=== PATIENT | female | born 1970 | race Caucasian/White ===

== ENCOUNTER → 2018-09-06 | Outpatient (CLI) | payer BC ==
--- NOTE | 2018-09-07 07:15 | US ---
EXAMINATION TYPE: US carotid duplex BILAT DATE OF EXAM: 09/06/2018 COMPARISON: NONE CLINICAL HISTORY: H53.9 Visual Disturbance. Visual problems. EXAM MEASUREMENTS: RIGHT: Peak Systolic Velocity (PSV) cm/sec ----- Right CCA: 104.3 ----- Right ICA: 108.1 ----- Right ECA: 98.0 ICA/CCA ratio: 1.0 RIGHT: End Diastole cm/sec ----- Right CCA: 22.2 ----- Right ICA: 45.0 ----- Right ECA: 19.7 LEFT: Peak Systolic Velocity (PSV) cm/sec ----- Left CCA: 136.8 ----- Left ICA: 112.3 ----- Left ECA: 83.2 ICA/CCA ratio: 0.8 LEFT: End Diastole cm/sec ----- Left CCA: 23.1 ----- Left ICA: 50.4 ----- Left ECA: 15.0 VERTEBRALS (direction of flow): Right Vertebral: Antegrade Left Vertebral: Antegrade Rhythm: Normal IMPRESSION: No evidence for hemodynamically significant stenosis. Criteria for Assigning % of Stenosis / Diameter reduction (Estimation based on the indirect measurements of the internal carotid artery velocities (ICA PSV). 1. Normal (no stenosis)=ICA PSV < 125 cm/s: ratio < 2.0: ICA EDV<40 cm/s. 2. Less than 50% stenosis=ICA PSV < 125 cm/s: ratio < 2.0: ICA EDV<40 cm/s. 3. 50 to 69% stenosis=ICA PSV of 125 to 230 cm/s: ration 2.0 ? 4.0: ICA EDV 40-100 cm/s. 4. Greater than 70% stenosis to near occlusion= ICA PSV > 230 cm/s: ratio > 4.0: ICA EDV > 100 cm/s. 5. Near occlusion= ICA PSV velocities may be low or undetectable: variable ratio and ICA EDV. 6. Total occlusion=unable to detect flow.
== END | disposition home or self-care (01) ==
LOC: RADUSMAIN 17:48
PROVIDERS: ATTEND Family Medicine
DX: H53.9 Unspecified visual disturbance (principal)
CPT/HCPCS: 93880

== ENCOUNTER → 2020-03-29 | Outpatient (CLI) | payer BC ==
--- NOTE | 2020-03-29 09:40 | US ---
EXAMINATION TYPE: US venous doppler duplex LE RT DATE OF EXAM: 03/29/2020 9:11 AM COMPARISON: NONE CLINICAL HISTORY: R60.0 EDEMA. Edema SIDE PERFORMED: Right TECHNIQUE: The lower extremity deep venous system is examined utilizing real time linear array sonog jeevan with graded compression, doppler sonography and color-flow sonography. VESSELS IMAGED: External Iliac Vein (EIV) Common Femoral Vein Deep Femoral Vein Greater Saphenous Vein * Femoral Vein Popliteal Vein Small Saphenous Vein * Proximal Calf Veins (* superficial vessels) Right Leg: Negative for DVT IMPRESSION: 1. Right lower extremity ultrasound negative for deep venous thrombosis.
== END | disposition home or self-care (01) ==
LOC: RADUSWWP 09:09
PROVIDERS: ATTEND Family Medicine
DX: R60.0 Localized edema (principal)

== ENCOUNTER 2020-09-24 08:44 | Day surgery (SDC) | payer BC ==
[2020-09-23 08:43] VITALS: BMI 32.0
--- NOTE | 2020-09-23 11:20 | HP ---
HISTORY AND PHYSICAL CHIEF COMPLAINT: Left shoulder pain and stiffness. 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 She has tried therapy in addition to medications and injection with only partial temporary relief. She is having significant night symptoms along with pain with attempted overhead use. PAST MEDICAL HISTORY: Significant for hypertension, heart disease. PAST SURGICAL HISTORY: Significant for mitral valve replacement, lithotripsy in addition to uterine ablation. CURRENT MEDICATIONS: Aspirin, metoprolol, omeprazole, and warfarin. She has allergies to CIPROFLOXACIN, PENICILLIN, ZITHROMAX. FAMILY HISTORY: Significant for cancer. SOCIAL HISTORY: Occasional alcohol use. 16 POINT REVIEW OF SYSTEMS: Otherwise reviewed and is noncontributory. PHYSICAL EXAMINATION: On examination, the patient is approximately 5 foot 2, 175 pounds of mesomorphic habitus. HEENT' Exam is nonfocal. NECK: Supple. On examination of her left shoulder, she is tender about the anterior subacromial space and glenohumeral joint. She has moderate subacromial crepitus. Active range of motion, forward elevation 100 degrees, external rotation lateral side 15 degrees, internal rotation to L5. Passively, I am able to forward elevate her 100 degrees. Motor strength is 5/5 for abduction and external rotation. Impingement test is positive. NEER test is positive. Her distal neurovascular exam appears intact in the left upper extremity. IMPRESSION: 1. Left shoulder adhesive capsulitis. 2. History of heart valve replacement, on anticoagulation. RECOMMENDATIONS: I talked to the patient at length regarding her condition and treatment options. At this point, she remains quite limited because of pain and stiffness despite adequate conservative measures. After thorough discussion, she opts to proceed with manipulation under anesthesia. Risks and benefits were discussed at length in layman's terms. We will likely perform that as an outpatient procedure and restart her formal therapy directly after that. MMODL / IJN: [id number] /
[~2020-09-24 08:44] MED LIST: DEXAMETHASONE SOD PHOSPHATE 4 MG/ML 1 ML VIAL IV ONE; HYDROmorphone 0.5 MG/0.5 ML SYRINGE IVP PRN; LACTATED RINGERS 1,000 ML IV SCH; LIDOCAINE 1% (10MG/ML) FOR IV START INTRADERMA PRN; MIDAZOLAM 2 MG/2 ML VIAL IV PRN; ONDANSETRON 4 MG/2 ML VIAL IVP ONE
[2020-09-24] MEDS ORDERED: fentaNYL (PF) 50 MCG/ML 2 ML AMP ONE (10:49)
[2020-09-24] MEDS ORDERED: PROPOFOL 10 MG/ML 20 ML VIAL IV ONE (10:49)
[2020-09-24] MEDS ORDERED: MIDAZOLAM 2 MG/2 ML VIAL ONE (10:49)
--- NOTE | 2020-09-24 11:02 | P.OP ---
Date of Procedure: 09/24/20 Preoperative Diagnosis: Left shoulder adhesive capsulitis Postoperative Diagnosis: Same Procedure(s) Performed: Manipulation under anesthesia left shoulder Anesthesia: MAC Surgeon: Kali Parker Estimated Blood Loss (ml): 0 Pathology: none sent Condition: stable Disposition: PACU Indications for Procedure: The patient's a 50-year-old female who presents with increasing left shoulder pain and stiffness secondary to adhesive capsulitis despite conservative measures. A discussion of the risks and benefits of manipulation under anesthesia was made with patient. She opted to proceed. Specific risks of this procedure to include fracture, tendon rupture, recurrence of stiffness and need for subsequent procedures was discussed. Informed consent was obtained. Operative Findings: As below Description of Procedure: Patient brought to the recovery room, and after induction of IV sedation the left shoulder was then gently manipulated. First with the arm at side obtaining full external rotation. Moderate adhesions were encountered. I then obtained full forward elevation. Again moderate adhesions were encountered. I felt I had adequate release at this point. She was then monitored until fully awake. No applications were incurred. There was no blood loss.
[2020-09-24 11:10] VITALS: TEMP 98
[2020-09-24] MEDS: fentaNYL (PF) 50 MCG/ML 2 ML AMP IVP ONE ×2 (11:24→11:34)
[2020-09-24] MEDS ORDERED: fentaNYL (PF) 50 MCG/ML 2 ML AMP IVP ONE (11:24)
[2020-09-24] MEDS ORDERED: traMADol 50 MG TAB ONE (12:22)
[2020-09-24] MEDS ORDERED: traMADol 50 MG TAB PO ONE (12:22)
[2020-09-24 12:38] VITALS: BP 134/86; PULSE 88; RESP 20
== END 2020-09-24 13:02 | disposition home or self-care (01) ==
LOC: OR 08:44
PROVIDERS: ATTEND Orthopaedic Surgery
DX: M75.02 Adhesive capsulitis of left shoulder (principal); Z95.2 Presence of prosthetic heart valve; I11.9 Hypertensive heart disease without heart failure; Z98.890 Other specified postprocedural states; Z80.9 Family history of malignant neoplasm, unspecified; I48.91 Unspecified atrial fibrillation; Z87.442 Personal history of urinary calculi; Z79.01 Long term (current) use of anticoagulants; Z79.82 Long term (current) use of aspirin; Z79.899 Other long term (current) drug therapy; Z88.1 Allergy status to other antibiotic agents; Z88.0 Allergy status to penicillin
CPT/HCPCS: 23700; 81025; J2250; J1100; J2405; J3010; J2704; J1170

== ENCOUNTER 2021-02-14 12:19 | Emergency (ER) | payer BC ==
[2021-02-14 12:24] VITALS: TEMP 97.4
[2021-02-14] MEDS ORDERED: SODIUM CHLORIDE 0.9% 1,000 ML IV STA (12:48)
[2021-02-14 13:16] LABS: Basophils # (A) 0.1 k/uL (0-0.2); Basophils % (A) 1 %; Eosinophils # (A) 0.5 k/uL (0-0.7); Eosinophils % (A) 7 %; HCT 38.7 % (34.0-46.0); HGB 13.3 gm/dL (11.4-16.0); Lymphocytes # (A) 2.3 k/uL (1.0-4.8); Lymphocytes % (A) 31 %; MCH 30.7 pg (25.0-35.0); MCHC 34.3 g/dL (31.0-37.0); MCV 89.7 fL (80.0-100.0); Mean Platelet Volume 7.6; Monocytes # (A) 0.4 k/uL (0-1.0); Monocytes % (A) 6 %; Neutrophils # (A) 3.9 k/uL (1.3-7.7); Neutrophils % (A) 53 %; Platelet Count 288 k/uL (150-450); RBC 4.32 m/uL (3.80-5.40); RDW 13.3 % (11.5-15.5); WBC 7.4 k/uL (3.8-10.6)
[2021-02-14 13:31] LABS: ALT 32 U/L (4-34); AST 35 U/L (14-36); African American GFR (CKD) >90 (>60 ml/min/1.73 sqM); Albumin 4.3 g/dL (3.5-5.0); Alkaline Phosphatase 101 U/L (38-126); Anion Gap 14 mmol/L; Blood Urea Nitrogen 10 mg/dL (7-17); Calcium 9.2 mg/dL (8.4-10.2); Carbon Dioxide 18 mmol/L (22-30); Chloride 105 mmol/L (98-107); Glucose 126 mg/dL (74-99); Magnesium 1.6 mg/dL (1.6-2.3); Non-African American GFR(CKD) >90 (>60 ml/min/1.73 sqM); Potassium 3.5 mmol/L (3.5-5.1); Sodium 137 mmol/L (137-145); Total Bilirubin 0.6 mg/dL (0.2-1.3); Total Protein 7.8 g/dL (6.3-8.2)
[2021-02-14 13:44] LABS: INR 2.6 (<1.2); Partial Thromboplastin Time 26.9 sec (22.0-30.0)
[2021-02-14] MEDS ORDERED: ONDANSETRON 4 MG/2 ML VIAL IVP STA (13:44)
--- NOTE | 2021-02-14 13:47 | CT ---
EXAMINATION TYPE: CT brain wo con DATE OF EXAM: 02/14/2021 COMPARISON: None INDICATION: Dizziness, hand numbness, nausea, weakness without injury for 1 hour DLP: 1055.4 mGycm, Automated exposure control for dose reduction was used. CONTRAST: None CT of the brain is performed utilizing 3 mm thick sections through the posterior fossa and 3 mm thick sections through the remaining calvarium. Study is performed within 24 hours of arrival to the hosp ital. No abnormal hyperdensity is present to suggest an acute intracranial hemorrhage. No mass lesion is evident. No acute infarcts are evident. Ventricles and sulci are appropriate for the patient age. Paranasal sinuses and mastoid air cells within the [id number] are clear. IMPRESSIONS: 1. No acute intracranial process.
[2021-02-14 13:51] VITALS: RESP 16
--- NOTE | 2021-02-14 13:53 | XR ---
EXAMINATION TYPE: XR chest 2V DATE OF EXAM: 02/14/2021 COMPARISON: 12/14/2011 HISTORY: Dysrhythmia TECHNIQUE: FINDINGS: There is no heart failure nor confluent pneumonic infiltrate. There are sternal wires. Cost ophrenic angles are clear. Heart size is fairly normal. IMPRESSION: No active cardiopulmonary disease. No change.
[2021-02-14] MEDS ORDERED: METOCLOPRAMIDE 5 MG/ML 2 ML VIAL IVP STA (14:30)
[2021-02-14] MEDS ORDERED: diphenhydrAMINE 50 MG/ML 1 ML VIAL IVP STA (14:30)
--- NOTE | 2021-02-14 15:49 | ED ---
Arrhythmia/Palpitations HPI - General Chief Complaint: Arrhythmia/Palpitations Stated Complaint: palpitations Time Seen by Provider: 02/14/21 12:33 Source: patient Mode of arrival: wheelchair Limitations: no limitations - History of Present Illness Initial Comments: 50-year-old female presenting for dizziness, tingling in both hands. Patient states that she has history of Mnire's she states she is not dizziness in quite some time but this morning with movement of the head she was having dizziness and nausea she states she just felt off and her hands tingled bilaterally. pt denies headache, vision changes, neck stiffness, falls, trauma to head, ear pain, speech changes, being off balance. Patient denies fevers, chest pain, leg swelling, dyspnea. patient states she did have some palpitations earlier that have gone away. Denies additional complaints. Upon arrival patient appears well nontoxic in no acute distress. - Related Data Home Medications Medication Instructions Recorded Confirmed Aspirin EC [Ecotrin] 81 mg PO DAILY 01/07/15 02/14/21 Omeprazole 20 mg PO DAILY 09/23/20 02/14/21 Magnesium Oxide 400 mg PO DAILY 02/14/21 02/14/21 Metoprolol Succinate [Toprol XL] 50 mg PO BID 02/14/21 02/14/21 Warfarin Sodium [Jantoven] 2.5 mg PO DAILY 02/14/21 02/14/21 Warfarin Sodium [Jantoven] 3 mg PO DAILY 02/14/21 02/14/21 Previous Rx's Medication Instructions Recorded Meclizine [Antivert] 25 mg PO BID 7 Days #14 tab 02/14/21 Allergies Allergy/AdvReac Type Severity Reaction Status Date / Time ciprofloxacin Allergy Rash/Hives Verified 02/14/21 13:34 erythromycin base Allergy SEVERE Verified 02/14/21 13:34 HEADACHES Penicillins Allergy Rash/Hives Verified 02/14/21 13:34 azithromycin [From Zithromax] AdvReac headache Verified 02/14/21 13:34 Review of Systems ROS Statement: Those systems with pertinent positive or pertinent negative responses have been documented in the HPI. ROS Other: All systems not noted in ROS Statement are negative. Past Medical History Past Medical History: Atrial Fibrillation, GERD/Reflux Additional Past Medical History / Comment(s): KIDNEY STONES. FROZEN LEFT SHOULDER. LOW BLOOD PRESSURE, History of Any Multi-Drug Resistant Organisms: None Reported Past Surgical History: Heart Catheterization, Uterine Ablation Additional Past Surgical History / Comment(s): mitral valve repair X3,. ASD repair. LITHOTRIPSY X 2. SX FOR ENDOMETRIOSIS. mitral valve replacement, Past Anesthesia/Blood Transfusion Reactions: Postoperative Nausea & Vomiting (PONV) Past Psychological History: No Psychological Hx Reported Smoking Status: Never smoker Past Alcohol Use History: None Reported, Occasional Past Drug Use History: None Reported - Past Family History Mother Family Medical History: No Reported History General Exam - General Exam Comments Initial Comments: General: The patient is awake and alert, in no distress, and does not appear acutely ill. Eye: +3 mm pupils are equal, round and reactive to light, extra-ocular movements are intact. No nystagmus. There is normal conjunctiva bilaterally. No signs of icterus. Dizziness increased with rapid head movemlent (improved with benadryl) Ears, nose, mouth and throat: There are moist mucous membranes and no oral lesions. Neck: The neck is supple, there is no tenderness or JVD. Cardiovascular: There is a regular rate and rhythm. No murmur, rub or gallop is appreciated. Respiratory: Lungs are clear to auscultation, respirations are non-labored, breath sounds are equal. No wheezes, stridor, rales, or rhonchi. Gastrointestinal: Soft, non-distended, non-tender abdomen without masses or organomegaly noted. There is no rebound or guarding present. Musculoskeletal: Normal ROM, no tenderness. Strength 5/5. Sensation intact. Radial and DP pulses equal bilaterally 2+. Neurological: A&O x 3. CN II-XII intact, There are no obvious motor or sensory deficits. Coordination appears grossly intact. Speech is normal. Movement smooth coordinated, gait even in stride. no ataxia. Skin: Skin is warm and dry and no rashes or lesions are noted. Psychiatric: Cooperative, appropriate mood & affect, normal judgment. Limitations: no limitations Course Vital Signs 02/14/21 02/14/21 02/14/21 12:21 13:50 16:01 Temperature 97.4 F L Pulse Rate 103 H 85 101 H Respiratory 24 16 16 Rate Blood Pressure 128/79 111/72 107/74 O2 Sat by Pulse 100 98 100 Oximetry Medical Decision Making - Medical Decision Making EKG no acute findings,. troponin (-). description sounds like vertigo rather than presyncope. patient cxr clear. murmur present. no leg swelling. patient feeling better with meclizine and benadryl. patient CT brain (-). discussed case with Dr Sidhu who is agreeable to discharge (he did evaluate the patient personally). patient is agreebale to discharge with pcp f/u. return for worsening symptoms. given hx provided I feel this is likely peripheral vertigo. - Lab Data Result diagrams: 02/14/21 12:50 02/14/21 12:50 Lab Results 02/14/21 02/14/21 02/14/21 Range/Units 12:50 12:50 12:50 WBC 7.4 (3.8-10.6) k/uL RBC 4.32 (3.80-5.40) m/uL Hgb 13.3 (11.4-16.0) gm/dL Hct 38.7 (34.0-46.0) % MCV 89.7 (80.0-100.0) fL MCH 30.7 (25.0-35.0) pg MCHC 34.3 (31.0-37.0) g/dL RDW 13.3 (11.5-15.5) % Plt Count 288 (150-450) k/uL MPV 7.6 Neutrophils % 53 % Lymphocytes % 31 % Monocytes % 6 % Eosinophils % 7 % Basophils % 1 % Neutrophils # 3.9 (1.3-7.7) k/uL Lymphocytes # 2.3 (1.0-4.8) k/uL Monocytes # 0.4 (0-1.0) k/uL Eosinophils # 0.5 (0-0.7) k/uL Basophils # 0.1 (0-0.2) k/uL PT 25.0 H (9.0-12.0) sec INR 2.6 H (<1.2) APTT 26.9 (22.0-30.0) sec Sodium 137 (137-145) mmol/L Potassium 3.5 (3.5-5.1) mmol/L Chloride 105 (98-107) mmol/L Carbon Dioxide 18 L (22-30) mmol/L Anion Gap 14 mmol/L BUN 10 (7-17) mg/dL Creatinine 0.49 L (0.52-1.04) mg/dL Est GFR (CKD-EPI)AfAm >90 (>60 ml/min/1.73 sqM) Est GFR (CKD-EPI)NonAf >90 (>60 ml/min/1.73 sqM) Glucose 126 H (74-99) mg/dL Calcium 9.2 (8.4-10.2) mg/dL Magnesium 1.6 (1.6-2.3) mg/dL Total Bilirubin 0.6 (0.2-1.3) mg/dL AST 35 (14-36) U/L ALT 32 (4-34) U/L Alkaline Phosphatase 101 (38-126) U/L Troponin I (0.000-0.034) ng/mL Total Protein 7.8 (6.3-8.2) g/dL Albumin 4.3 (3.5-5.0) g/dL TSH 3.330 (0.465-4.680) mIU/L 02/14/21 Range/Units 12:50 WBC (3.8-10.6) k/uL RBC (3.80-5.40) m/uL Hgb (11.4-16.0) gm/dL Hct (34.0-46.0) % MCV (80.0-100.0) fL MCH (25.0-35.0) pg MCHC (31.0-37.0) g/dL RDW (11.5-15.5) % Plt Count (150-450) k/uL MPV Neutrophils % % Lymphocytes % % Monocytes % % Eosinophils % % Basophils % % Neutrophils # (1.3-7.7) k/uL Lymphocytes # (1.0-4.8) k/uL Monocytes # (0-1.0) k/uL Eosinophils # (0-0.7) k/uL Basophils # (0-0.2) k/uL PT (9.0-12.0) sec INR (<1.2) APTT (22.0-30.0) sec Sodium (137-145) mmol/L Potassium (3.5-5.1) mmol/L Chloride (98-107) mmol/L Carbon Dioxide (22-30) mmol/L Anion Gap mmol/L BUN (7-17) mg/dL Creatinine (0.52-1.04) mg/dL Est GFR (CKD-EPI)AfAm (>60 ml/min/1.73 sqM) Est GFR (CKD-EPI)NonAf (>60 ml/min/1.73 sqM) Glucose (74-99) mg/dL Calcium (8.4-10.2) mg/dL Magnesium (1.6-2.3) mg/dL Total Bilirubin (0.2-1.3) mg/dL AST (14-36) U/L ALT (4-34) U/L Alkaline Phosphatase (38-126) U/L Troponin I <0.012 (0.000-0.034) ng/mL Total Protein (6.3-8.2) g/dL Albumin (3.5-5.0) g/dL TSH (0.465-4.680) mIU/L Disposition Clinical Impression: Dizziness, Paresthesia Disposition: HOME SELF-CARE Condition: Good Instructions (If sedation given, give patient instructions): Vertigo (ED), Benign Paroxysmal Positional Vertigo (ED) Additional Instructions: Please use medication as discussed. Please follow-up with family doctor in the next 2 days.. Please return to emergency room if the symptoms increase or worsen or for any other concerns. Prescriptions: Meclizine [Antivert] 25 mg PO BID 7 Days #14 tab Is patient prescribed a controlled substance at d/c from ED?: No Referrals: Seferino Matamoros MD [Primary Care Provider] - 1-2 days Time of Disposition: 15:49
[2021-02-14 16:02] VITALS: BP 107/74; PULSE 101
== END 2021-02-14 16:05 | disposition home or self-care (01) ==
LOC: EC 12:19
DX: R42 Dizziness and giddiness (principal); R20.2 Paresthesia of skin; R00.2 Palpitations; I48.91 Unspecified atrial fibrillation; K21.9 Gastro-esophageal reflux disease without esophagitis; Z79.82 Long term (current) use of aspirin; Z79.01 Long term (current) use of anticoagulants; Z88.0 Allergy status to penicillin; Z79.899 Other long term (current) drug therapy
CPT/HCPCS: 93005; 80053; 83735; 84443; 84484; 85025; 85610; 85730; 71046; 70450; 99285; 96374; 96375 ×2; J1200; J2765; J2405

== ENCOUNTER 2022-05-31 11:30 | Observation (INO) | payer BC ==
[2022-05-31] MEDS ORDERED: CYCLOBENZAPRINE 10 MG TAB PO STA (11:54)
[2022-05-31] MEDS ORDERED: MORPHINE SULFATE 2 MG/ML SYRINGE IM STA (12:16)
[2022-05-31] MEDS: MORPHINE SULFATE 2 MG/ML SYRINGE IVP STA ×2 (12:22→18:10)
--- NOTE | 2022-05-31 12:27 | ED ---
General Adult HPI - General Chief complaint: Recheck/Abnormal Lab/Rx Stated complaint: Back Pain Time Seen by Provider: 05/31/22 11:31 Source: patient, EMS, RN notes reviewed Mode of arrival: EMS Limitations: physical limitation - History of Present Illness Initial comments: Patient is a 52-year-old female presents to the emergency room via EMS for severe back pain causing difficulty ambulating. She reports that the pain is so severe that she feels that her legs are unsteady and it causes her significant pain to move her legs. Attempting to straighten her right leg causes muscle spasms and severe lower back pain. She denies any trauma. She reports that approximately one month ago she was doing some's repeating outside bending over excessively and afterwards she started having muscle spasms that have been ongoing for the last month this morning her symptoms had intensified when she had awaken and after doing the dishes earlier today the pain became so severe she was unable to ambulate. As stated she denies any trauma or falls. She denies any focal weakness not related to pain, bladder or bowel incontinence, or other red flag symptoms for cauda equina. She has a past medical history significant for atrial fibrillation, GERD, kidney stones, MVP with valve replacement; she is on warfarin. - Related Data Home Medications Medication Instructions Recorded Confirmed Aspirin EC [Ecotrin] 81 mg PO DAILY 01/07/15 02/14/21 Omeprazole 20 mg PO DAILY 09/23/20 02/14/21 Magnesium Oxide 400 mg PO DAILY 02/14/21 02/14/21 Metoprolol Succinate [Toprol XL] 50 mg PO BID 02/14/21 02/14/21 Warfarin Sodium [Jantoven] 2.5 mg PO DAILY 02/14/21 02/14/21 Warfarin Sodium [Jantoven] 3 mg PO DAILY 02/14/21 02/14/21 Previous Rx's Medication Instructions Recorded Meclizine [Antivert] 25 mg PO BID 7 Days #14 tab 02/14/21 Allergies Allergy/AdvReac Type Severity Reaction Status Date / Time ciprofloxacin Allergy Rash/Hives Verified 05/31/22 11:39 erythromycin base Allergy SEVERE Verified 05/31/22 11:39 HEADACHES Penicillins Allergy Rash/Hives Verified 05/31/22 11:39 azithromycin [From Zithromax] AdvReac headache Verified 05/31/22 11:39 Review of Systems ROS Statement: Those systems with pertinent positive or pertinent negative responses have been documented in the HPI. ROS Other: All systems not noted in ROS Statement are negative. Past Medical History Past Medical History: Atrial Fibrillation, GERD/Reflux, Mitral Valve Prolapse (MVP) Additional Past Medical History / Comment(s): Nephrolithiasis History of Any Multi-Drug Resistant Organisms: None Reported Past Surgical History: Heart Catheterization, Uterine Ablation Additional Past Surgical History / Comment(s): mitral valve repair X3,. ASD repair. LITHOTRIPSY X 2. SX FOR ENDOMETRIOSIS. mitral valve replacement, Past Anesthesia/Blood Transfusion Reactions: Postoperative Nausea & Vomiting (PONV) Past Psychological History: No Psychological Hx Reported Smoking Status: Never smoker Past Alcohol Use History: None Reported, Occasional Past Drug Use History: None Reported - Past Family History Mother Family Medical History: No Reported History General Exam Limitations: physical limitation General appearance: alert, in no apparent distress Head exam: Present: atraumatic, normocephalic, normal inspection Eye exam: Present: normal appearance, PERRL, EOMI. Absent: scleral icterus, conjunctival injection, periorbital swelling ENT exam: Present: normal exam, mucous membranes moist Neck exam: Present: normal inspection, full ROM GI/Abdominal exam: Present: soft, normal bowel sounds. Absent: distended, tenderness, guarding, rebound, rigid Extremities exam: Present: normal inspection. Absent: pedal edema, joint swelling Back exam: Present: other (Difficult to assess due to severe pain. No point tenderness noted.). Absent: paraspinal tenderness, vertebral tenderness Expanded Back exam: Positive Straight Leg Raise: Right Neurological exam: Present: alert, oriented X3, CN II-XII intact Psychiatric exam: Present: normal affect, normal mood Skin exam: Present: warm, dry, intact, normal color. Absent: rash Course Vital Signs 05/31/22 05/31/22 11:34 13:43 Temperature 97.9 F Pulse Rate 69 72 Respiratory 18 18 Rate Blood Pressure 151/85 141/70 O2 Sat by Pulse 98 98 Oximetry Medical Decision Making - Medical Decision Making 52-year-old female with severe low back pain with difficulty ambulating and severe back spasms with straightening of right leg. Denies any trauma or injury. Will give morphine IM for pain along with muscle relaxer orally. Will check CT of the lumbar spine and monitor. No indication for laboratory studies at this time. Im morphine given due to failure of IV for pain. Computed tomography scan revealed L5-S1 disc bulge with superimposed central disc protrusion and result in mild to moderate spinal stenosis of the spinal Canal along with L4-L5 bulging with mild spinal canal stenosis. Pain not improved with IM morphine. IV line to be placed and we'll give Decadron, Valium along with 4 mg of morphine and monitor response. Slight improvement in pain but still severe pain with inability to fall onto and off of a bedside commode. Will plan for observation admission for intractable pain. Dr. Gaming with sound physicians advised of the patient's case and admission need; excepting admission. Case discussed with Dr. Sidhu. - Lab Data Result diagrams: 05/31/22 13:43 05/31/22 13:43 Lab Results 05/31/22 05/31/22 05/31/22 Range/Units 13:27 13:43 13:43 WBC 9.1 (3.8-10.6) k/uL RBC 4.38 (3.80-5.40) m/uL Hgb 12.8 (11.4-16.0) gm/dL Hct 38.9 (34.0-46.0) % MCV 88.9 (80.0-100.0) fL MCH 29.2 (25.0-35.0) pg MCHC 32.8 (31.0-37.0) g/dL RDW 13.9 (11.5-15.5) % Plt Count 274 (150-450) k/uL MPV 7.9 Neutrophils % 78 % Lymphocytes % 13 % Monocytes % 3 % Eosinophils % 4 % Basophils % 1 % Neutrophils # 7.1 (1.3-7.7) k/uL Lymphocytes # 1.2 (1.0-4.8) k/uL Monocytes # 0.2 (0-1.0) k/uL Eosinophils # 0.4 (0-0.7) k/uL Basophils # 0.1 (0-0.2) k/uL PT (9.0-12.0) sec INR (<1.2) APTT (22.0-30.0) sec Sodium 136 L (137-145) mmol/L Potassium 4.4 (3.5-5.1) mmol/L Chloride 104 (98-107) mmol/L Carbon Dioxide 19 L (22-30) mmol/L Anion Gap 13 mmol/L BUN 10 (7-17) mg/dL Creatinine 0.66 (0.52-1.04) mg/dL Est GFR (CKD-EPI)AfAm >90 (>60 ml/min/1.73 sqM) Est GFR (CKD-EPI)NonAf >90 (>60 ml/min/1.73 sqM) Glucose 94 (74-99) mg/dL Calcium 8.8 (8.4-10.2) mg/dL Total Bilirubin 0.5 (0.2-1.3) mg/dL AST 19 (14-36) U/L ALT 15 (4-34) U/L Alkaline Phosphatase 67 (38-126) U/L Total Protein 7.3 (6.3-8.2) g/dL Albumin 3.9 (3.5-5.0) g/dL Urine Color Light Yellow Urine Appearance Clear (Clear) Urine pH 7.0 (5.0-8.0) Ur Specific Sparks 1.009 (1.001-1.035) Urine Protein Negative (Negative) Urine Glucose (UA) Negative (Negative) Urine Ketones Negative (Negative) Urine Blood Negative (Negative) Urine Nitrite Negative (Negative) Urine Bilirubin Negative (Negative) Urine Urobilinogen <2.0 (<2.0) mg/dL Ur Leukocyte Esterase Negative (Negative) 05/31/22 Range/Units 14:22 WBC (3.8-10.6) k/uL RBC (3.80-5.40) m/uL Hgb (11.4-16.0) gm/dL Hct (34.0-46.0) % MCV (80.0-100.0) fL MCH (25.0-35.0) pg MCHC (31.0-37.0) g/dL RDW (11.5-15.5) % Plt Count (150-450) k/uL MPV Neutrophils % % Lymphocytes % % Monocytes % % Eosinophils % % Basophils % % Neutrophils # (1.3-7.7) k/uL Lymphocytes # (1.0-4.8) k/uL Monocytes # (0-1.0) k/uL Eosinophils # (0-0.7) k/uL Basophils # (0-0.2) k/uL PT 25.7 H (9.0-12.0) sec INR 2.6 H (<1.2) APTT 32.9 H (22.0-30.0) sec Sodium (137-145) mmol/L Potassium (3.5-5.1) mmol/L Chloride (98-107) mmol/L Carbon Dioxide (22-30) mmol/L Anion Gap mmol/L BUN (7-17) mg/dL Creatinine (0.52-1.04) mg/dL Est GFR (CKD-EPI)AfAm (>60 ml/min/1.73 sqM) Est GFR (CKD-EPI)NonAf (>60 ml/min/1.73 sqM) Glucose (74-99) mg/dL Calcium (8.4-10.2) mg/dL Total Bilirubin (0.2-1.3) mg/dL AST (14-36) U/L ALT (4-34) U/L Alkaline Phosphatase (38-126) U/L Total Protein (6.3-8.2) g/dL Albumin (3.5-5.0) g/dL Urine Color Urine Appearance (Clear) Urine pH (5.0-8.0) Ur Specific Sparks (1.001-1.035) Urine Protein (Negative) Urine Glucose (UA) (Negative) Urine Ketones (Negative) Urine Blood (Negative) Urine Nitrite (Negative) Urine Bilirubin (Negative) Urine Urobilinogen (<2.0) mg/dL Ur Leukocyte Esterase (Negative) - Radiology Data Radiology results: report reviewed, image reviewed Computed tomography scan lumbar spine without contrast impression L5-S1 disc bulge with superimposed central disc protrusion and rate salt and mild to moderate stenosis of the spinal canal. 2. L4-L5 disc bulge with mild spinal kennedi l stenosis. Disposition Clinical Impression: Bulge of lumbar disc without myelopathy Disposition: ADMITTED IP TO THIS [facility] Condition: Stable Is patient prescribed a controlled substance at d/c from ED?: No Referrals: Seferino Matamoros MD [Primary Care Provider] - 1-2 days Time of Disposition: 15:39
--- NOTE | 2022-05-31 13:07 | CT ---
EXAMINATION TYPE: CT lumbar spine wo con DATE OF EXAM: 05/31/2022 12:49 PM COMPARISON: Abdomen pelvis 01/07/2015 HISTORY: Low back pain CT DLP: 1141.4 mGycm Automated exposure control for dose reduction was used. Unenhanced CT of the lumbar spine was performed. Bone and soft tissue window settings are submitted as well as coronal and sagittal reconstructions. L1-L2, L2-L3, L3-L4: Normal disc space height. No disc herniation protrusion or central stenosis. N o facet joint arthropathy. No evidence for foraminal encroachment. L4-L5: Mild decrease in intervertebral disc height. Posterior disc bulge is addition to buckling of t he ligamentum flavum results in at least mild spinal canal stenosis. The neural foramina are patent. Mild facet arthropathy. L5-S1: Mild intervertebral disc height loss. Disc bulge with superimposed central disc protrusion con tributes to mild to moderate spinal stenosis. Minimal encroachment on the left neural foramen. The ri ght neural foramen is clear. IMPRESSION: 1. L5-S1 disc bulge with superimposed central disc protrusion and resultant mild to moderate stenosis of the spinal canal. 2. L4-L5 disc bulge with mild spinal canal stenosis.
[2022-05-31] MEDS ORDERED: MORPHINE SULFATE 4 MG/ML SYRINGE IVP STA (13:40)
[2022-05-31] MEDS ORDERED: DEXAMETHASONE SOD PHOSPHATE 10 MG/ML 1 ML VIAL IVP STA (13:40)
[2022-05-31 13:43] LABS: Appearance,Urine Clear (Clear); Bilirubin,Urine Negative (Negative); Blood,Urine Negative (Negative); Color,Urine Light Yellow; Glucose,Urine (UA) Negative (Negative); Ketones,Urine Negative (Negative); Leukocyte Esterase,Urine Negative (Negative); Nitrite,Urine Negative (Negative); Protein,Urine Negative (Negative); Specific Gravity,Urine 1.009 (1.001-1.035); Urobilinogen,Urine <2.0 mg/dL (<2.0)
[2022-05-31 13:52] LABS: Basophils # (A) 0.1 k/uL (0-0.2); Basophils % (A) 1 %; Eosinophils # (A) 0.4 k/uL (0-0.7); Eosinophils % (A) 4 %; HCT 38.9 % (34.0-46.0); HGB 12.8 gm/dL (11.4-16.0); Lymphocytes # (A) 1.2 k/uL (1.0-4.8); Lymphocytes % (A) 13 %; MCH 29.2 pg (25.0-35.0); MCHC 32.8 g/dL (31.0-37.0); MCV 88.9 fL (80.0-100.0); Mean Platelet Volume 7.9; Monocytes # (A) 0.2 k/uL (0-1.0); Monocytes % (A) 3 %; Neutrophils # (A) 7.1 k/uL (1.3-7.7); Neutrophils % (A) 78 %; Platelet Count 274 k/uL (150-450); RBC 4.38 m/uL (3.80-5.40); RDW 13.9 % (11.5-15.5); WBC 9.1 k/uL (3.8-10.6)
[2022-05-31 14:00] LABS: ALT 15 U/L (4-34); AST 19 U/L (14-36); African American GFR (CKD) >90 (>60 ml/min/1.73 sqM); Albumin 3.9 g/dL (3.5-5.0); Alkaline Phosphatase 67 U/L (38-126); Anion Gap 13 mmol/L; Blood Urea Nitrogen 10 mg/dL (7-17); Calcium 8.8 mg/dL (8.4-10.2); Carbon Dioxide 19 mmol/L (22-30); Chloride 104 mmol/L (98-107); Glucose 94 mg/dL (74-99); Non-African American GFR(CKD) >90 (>60 ml/min/1.73 sqM); Potassium 4.4 mmol/L (3.5-5.1); Sodium 136 mmol/L (137-145); Total Bilirubin 0.5 mg/dL (0.2-1.3); Total Protein 7.3 g/dL (6.3-8.2)
[2022-05-31 14:43] LABS: INR 2.6 (<1.2); Partial Thromboplastin Time 32.9 sec (22.0-30.0); Prothrombin Time 25.7 sec (9.0-12.0)
[2022-05-31] MEDS ORDERED: MORPHINE SULFATE 4 MG/ML SYRINGE IV PRN (15:40)
[2022-05-31] MEDS ORDERED: NALOXONE 0.4 MG/ML 1 ML VIAL IV PRN ×2 (15:40→17:35)
--- NOTE | 2022-05-31 17:42 | P.HPIM ---
History of Present Illness H&P Date: 05/31/22 Chief Complaint: back pain 52-year-old female with past medical history significant for atrial fibrillation, GERD, kidney stones, MVP with valve replacement on coumadin presents to the emergency room via EMS for severe back pain causing difficulty with ambulation. No hx of trauma. Patient had few episodes of muscle spasms in her back throughout her life. No chronic back pain. Pain does not radiate towards her leg. However any movement of the leg could trigger the back pain. She denies any focal weakness or numbness, no bladder or bowel incontinence. In the emergency department she had a computed tomography scan of the lower back that showed L5 to S1 disc bulge with superimposed central disc protrusion and resulting mild to moderate stenosis of the spinal canal, L4 to L5 disc bulge with mild spinal canal stenosis. Review of Systems Complete review of system performed, pertinent positives per HPI, otherwise negative Past Medical History Past Medical History: Atrial Fibrillation, GERD/Reflux, Mitral Valve Prolapse (MVP) Additional Past Medical History / Comment(s): Nephrolithiasis History of Any Multi-Drug Resistant Organisms: None Reported Past Surgical History: Heart Catheterization, Uterine Ablation Additional Past Surgical History / Comment(s): mitral valve repair X3,. ASD repair. LITHOTRIPSY X 2. SX FOR ENDOMETRIOSIS. mitral valve replacement, Past Anesthesia/Blood Transfusion Reactions: Postoperative Nausea & Vomiting (PONV) Past Psychological History: No Psychological Hx Reported Smoking Status: Never smoker Past Alcohol Use History: None Reported, Occasional Past Drug Use History: None Reported - Past Family History Mother Family Medical History: No Reported History Medications and Allergies Home Medications Medication Instructions Recorded Confirmed Type Aspirin EC [Ecotrin] 81 mg PO DAILY 01/07/15 05/31/22 History Omeprazole 20 mg PO DAILY 09/23/20 05/31/22 History Magnesium Oxide 400 mg PO DAILY 02/14/21 05/31/22 History Ascorbic Acid [Vitamin C] 500 mg PO DAILY 05/31/22 05/31/22 History Cholecalciferol (Vitamin D3) 125 mcg PO DAILY 05/31/22 05/31/22 History [Vitamin D3 (125 MCG = 5,000 IU)] Metoprolol Succinate (ER) [Toprol 25 mg PO BID 05/31/22 05/31/22 History Xl] Pimtrea 0.15-0.02-0.01mg 1 tab PO HS 05/31/22 05/31/22 History Propafenone HCl [Propafenone HCl 225 mg PO BID 05/31/22 05/31/22 History ER] Rosuvastatin Calcium [Crestor] 5 mg PO DAILY 05/31/22 05/31/22 History Warfarin Sodium [Jantoven] 4 mg PO DAILY 05/31/22 05/31/22 History Allergies Allergy/AdvReac Type Severity Reaction Status Date / Time ciprofloxacin Allergy Rash/Hives Verified 05/31/22 15:57 erythromycin base Allergy SEVERE Verified 05/31/22 15:57 HEADACHES Penicillins Allergy Rash/Hives Verified 05/31/22 15:57 azithromycin [From Zithromax] AdvReac headache Verified 05/31/22 15:57 Physical Exam Vitals: Vital Signs Temp Pulse Resp BP Pulse Ox 05/31/22 13:43 72 18 141/70 98 05/31/22 11:34 97.9 F 69 18 151/85 98 Intake and Output 05/31/22 05/31/22 05/31/22 06:59 14:59 22:59 Other: Weight 88.451 kg Constitutional: No acute distress, conversant, pleasant Eyes:Anicteric sclerae, moist conjunctiva, no lid-lag, PERRLA, ENMT: Oropharynx clear, no erythema, exudates Neck: Supple, FROM, no masses, or JVD, No carotid bruits, No thyromegaly Lungs: Clear to auscultation, Clear to percussion, Normal respiratory effort, no accessory muscle use Cardiovascular: Heart regular in rate and rhythm, No murmurs, gallops, or rubs, No peripheral edema Abdominal: Soft, Nontender, no guarding, rebound or rigidity, Normoactive bowel sounds, No hepatomegaly, No splenomegaly, No palpable mass Skin: Normal temperature, tone, texture, turgor, no induration, No subcutaneous nodules, No rash, lesions, No ulcers Extremities: No digital cyanosis, No clubbing, Pedal pulses intact and symmetrical, Radial pulses intact and symmetrical, No calf tenderness Psychiatric: Alert and oriented to person, place and time, appropriate affect, intact judgement Neuro: Muscles Strength 5/5 in all 4 extremities, Sensation to light touch grossly present throughout, Cranial nerves II-XII grossly intact, no focal sensory deficits Results CBC & Chem 7: 05/31/22 13:43 05/31/22 13:43 Labs: Abnormal Lab Results - Last 24 Hours (Table) 05/31/22 05/31/22 Range/Units 13:43 14:22 PT 25.7 H (9.0-12.0) sec INR 2.6 H (<1.2) APTT 32.9 H (22.0-30.0) sec Sodium 136 L (137-145) mmol/L Carbon Dioxide 19 L (22-30) mmol/L Assessment and Plan Plan: Intractable back pain In inability to ambulate Morphine when necessary for pain, [place] as needed Physical therapy evaluation Orthopedic evaluation History of atrial fibrillation status post ablation History of mechanical mitral valve replacement History of ASD repair GERD History of nephrolithiasis All stable Resume meds. Admit to observation
[2022-05-31] MEDS: [UNRECOGNIZED DRUG - OTHER] PO SCH (20:15)
[2022-05-31] MEDS: PROPAFENONE 150 MG TAB PO SCH (20:18)
[2022-05-31] MEDS: HYDROcodone/APAP 5-325MG 1 EACH TAB PO PRN (20:18)
[2022-05-31] MEDS: METOPROLOL SUCCINATE (ER) 25 MG TAB.ER.24H PO SCH (20:18)
[2022-06-01] MEDS: HYDROcodone/APAP 5-325MG 1 EACH TAB PO PRN ×3 (03:20→12:57)
[2022-06-01] MEDS: METOPROLOL SUCCINATE (ER) 25 MG TAB.ER.24H PO SCH ×2 (08:03→21:25)
[2022-06-01] MEDS: ASCORBIC ACID 500 MG TAB PO SCH (08:03)
[2022-06-01] MEDS: MAGNESIUM OXIDE 400 MG TAB PO SCH (08:03)
[2022-06-01] MEDS: ASPIRIN 81 MG PO SCH (08:03)
[2022-06-01] MEDS: ATORVASTATIN 10 MG TAB PO SCH (08:03)
[2022-06-01] MEDS: PROPAFENONE 150 MG TAB PO SCH ×3 (08:03→21:25)
[2022-06-01] MEDS: PANTOPRAZOLE 40 MG TABLET PO SCH (08:03)
[2022-06-01 10:01] LABS: INR 2.59 (0.90-1.11)
[2022-06-01] MEDS ORDERED: CYCLOBENZAPRINE 10 MG TAB PO PRN (13:08)
--- NOTE | 2022-06-01 13:13 | P.CNOR ---
History of Present Illness - [facility] Consult date: 06/01/22 Requesting physician: Mary Jane Pedersen Consult reason: low back pain (Intractable low back pain) History of present illness: Patient is a very pleasant 52-year-old female who is seen and examined at bedside for further evaluation of her lumbar spine. She states approximately 1 month ago she was doing some increased activities and had some increased low back pain at that time. Overall, her symptoms have been fairly well controlled. Her today while removing a bowl from her tankage grinder she began to experience severe pain in her lower lumbar spine. She states her pain has been significant. She has had difficulty with mobilization and ambulation due to her back pain. Her pain is exacerbated with bending and twisting activities. Due to the severity of her pain she was brought to [facility] for further evaluation. Initially, she states ever having some difficulty with pain control. She states her pain has had some improvement since her admission to the hospital. She does continue to have significant difficulty with mobilization. She's had difficulty getting out of bed. She states she currently denies any lower extremity weakness or radiculopathy bilaterally. She has good range of motion of her bilateral lower extremities. She does state some movements of her lower extremities will exacerbate her low back pain and cause spasm. She denies any saddle anesthesia. She denies difficulty with urination. Due to her difficulty with mobility, external catheter is currently in place. She did have CT imaging of her lumbar spine performed in the emergency department. She denies specific injury. She does have a significant medical history which includes atrial fibrillation with ablation and mechanical mitral valve replacement. Patient is currently on Coumadin. She has taken steroid medication the past without difficulty. She is unable to take anti-inflammatory medication due to her Coumadin use. Patient has a history of difficulty IV placement. Her current IV is bad and has been removed. Nursing states patient is currently scheduled to receive a new line placement this afternoon. Past Medical History Past Medical History: Atrial Fibrillation, GERD/Reflux, Mitral Valve Prolapse (MVP) Additional Past Medical History / Comment(s): Nephrolithiasis History of Any Multi-Drug Resistant Organisms: None Reported Past Surgical History: Heart Catheterization, Uterine Ablation Additional Past Surgical History / Comment(s): mitral valve repair X3,. ASD repair. LITHOTRIPSY X 2. SX FOR ENDOMETRIOSIS. mitral valve replacement, Past Anesthesia/Blood Transfusion Reactions: Postoperative Nausea & Vomiting (PONV) Past Psychological History: No Psychological Hx Reported Smoking Status: Never smoker Past Alcohol Use History: None Reported, Occasional Past Drug Use History: None Reported - Past Family History Mother Family Medical History: No Reported History Medications and Allergies Home Medications Medication Instructions Recorded Confirmed Type Aspirin EC [Ecotrin] 81 mg PO DAILY 01/07/15 05/31/22 History Omeprazole 20 mg PO DAILY 09/23/20 05/31/22 History Magnesium Oxide 400 mg PO DAILY 02/14/21 05/31/22 History Ascorbic Acid [Vitamin C] 500 mg PO DAILY 05/31/22 05/31/22 History Cholecalciferol (Vitamin D3) 125 mcg PO DAILY 05/31/22 05/31/22 History [Vitamin D3 (125 MCG = 5,000 IU)] Metoprolol Succinate (ER) [Toprol 25 mg PO BID 05/31/22 05/31/22 History Xl] Pimtrea 0.15-0.02-0.01mg 1 tab PO HS 05/31/22 05/31/22 History Propafenone HCl [Propafenone HCl 225 mg PO BID 05/31/22 05/31/22 History ER] Rosuvastatin Calcium [Crestor] 5 mg PO DAILY 05/31/22 05/31/22 History Warfarin Sodium [Jantoven] 4 mg PO DAILY 05/31/22 05/31/22 History Allergies Allergy/AdvReac Type Severity Reaction Status Date / Time ciprofloxacin Allergy Rash/Hives Verified 05/31/22 15:57 erythromycin base Allergy SEVERE Verified 05/31/22 15:57 HEADACHES Penicillins Allergy Rash/Hives Verified 05/31/22 15:57 azithromycin [From Zithromax] AdvReac headache Verified 05/31/22 15:57 Physical Examination Physical exam: Patient is awake, alert, and oriented 3 Vital signs stable Good chest excursion with deep inspiration and expiration Examination of lumbar spine reveals skin is intact with no abrasions, lacerations, or bruises; no erythema, purulence or signs of infection Dorsiflexion, plantarflexion, and extensor hallucis longus positive sustained bilaterally Lower extremity strength 5/5 bilaterally No lower extremity hyperreflexia bilaterally Straight leg test negative bilateral lower extremities Negative Lasegue's test bilaterally No signs or symptoms of DVT; no calf pain No pain with internal and external rotation of the hips bilaterally Neurovascularly intact External catheter intact Results Pertinent studies: CT of the lumbar spine taken on 05/31/2022: L4-5 degenerative disc disease, posterior disc bulge, mild facet arthropathy, and ligament of flavum buckling resulting in at least mild spinal canal stenosis; L5-S1 mild degenerative disc disease with disc bulge and central disc protrusion resulting in mild to moderate spinal stenosis - Labs Labs: Abnormal Lab Results - Last 24 Hours (Table) 05/31/22 05/31/22 06/01/22 Range/Units 13:43 14:22 06:08 PT 25.7 H 28.0 H (9.0-12.0) sec INR 2.6 H 2.59 H (<1.2) APTT 32.9 H (22.0-30.0) sec Sodium 136 L (137-145) mmol/L Carbon Dioxide 19 L (22-30) mmol/L H & H 05/31/22 Range/Units 13:43 Hgb 12.8 (11.4-16.0) gm/dL Hct 38.9 (34.0-46.0) % Coagulation 05/31/22 06/01/22 Range/Units 14:22 06:08 INR 2.6 H 2.59 H (<1.2) Result Diagrams: 05/31/22 13:43 05/31/22 13:43 Assessment and Plan Assessment: Assessment: Intractable low back pain Lumbar spasm L4-5 and L5-S1 degenerative disc disease Lumbar facet arthropathy L4-5 mild spinal stenosis L5-S1 mild to moderate spinal stenosis History of atrial fibrillation History of mechanical mitral valve replacement Currently on long-term anticoagulation with Coumadin (1) Intractable low back pain Current Visit: Yes Status: Acute Code(s): M54.59 - OTHER LOW BACK PAIN SNOMED Code(s): 71661003466773464 (2) Lumbar paraspinal muscle spasm Current Visit: Yes Status: Acute Code(s): M62.830 - MUSCLE SPASM OF BACK SNOMED Code(s): 42384281678823164 (3) Degeneration of L4-L5 intervertebral disc Current Visit: Yes Status: Acute Code(s): M51.36 - OTHER INTERVERTEBRAL DISC DEGENERATION, LUMBAR REGION SNOMED Code(s): 32282605 (4) Degenerative disc disease at L5-S1 level Current Visit: Yes Status: Acute Code(s): M51.37 - OTHER INTERVERTEBRAL DISC DEGENERATION, LUMBOSACRAL REGION SNOMED Code(s): 28140574 (5) Lumbar facet arthropathy Current Visit: Yes Status: Acute Code(s): M47.816 - SPONDYLOSIS W/O MYELOPATHY OR RADICULOPATHY, LUMBAR REGION SNOMED Code(s): 774032540 (6) Lumbar stenosis Current Visit: Yes Status: Acute Code(s): M48.061 - SPINAL STENOSIS, LUMBAR REGION WITHOUT NEUROGENIC CHUCHO SNOMED Code(s): 37651290 (7) Lumbosacral stenosis Current Visit: Yes Status: Acute Code(s): M48.07 - SPINAL STENOSIS, LUMB OSACRAL REGION SNOMED Code(s): 185275082 (8) History of atrial fibrillation Current Visit: Yes Status: Acute Code(s): Z86.79 - PERSONAL HISTORY OF OTHER DISEASES OF THE CIRCULATORY SYSTEM SNOMED Code(s): 315353906 (9) History of mitral valve replacement with mechanical valve Current Visit: Yes Status: Acute Code(s): Z95.2 - PRESENCE OF PROSTHETIC HEA RT VALVE SNOMED Code(s): 13440116104955 (10) Current use of usp anticoagulation Current Visit: Yes Status: Acute Code(s): Z79.01 - PRISON (CURRENT) USE OF ANTICOAGULANTS SNOMED Code(s): 357365302 Plan: Plan: 1. Patient has been experiencing some ongoing low back pain over the past month after doing some increased activities. Her symptoms were fairly well controlled until yesterday when her symptoms became severely exacerbated while removing a bowl from her tankage grinder. Since that time she has had severe pain across her lower lumbar spine. Her pain is exacerbated with bending and twisting activities. She presented to [facility] for further evaluation. Lumbar CT imaging was taken at that time which did show some changes most significant at L4-5 and L5-S1. She has had some improvement of her symptoms since her admission the hospital but her symptoms continue to be significant. She does have difficulty with mobility and ambulation due to her pain. She has good range of motion of bilateral lower extremities and denies lower extremity weakness or radiculopathy bilaterally. She denies any difficulty urination. She denies saddle anesthesia. She does state active range of motion of the bilateral lower extremities does increase her back pain. She does have spasm at her lumbar spine. She has taken cyclobenzaprine in the outpatient setting previously was some benefit. We'll currently planned to start her on cyclobenzaprine 10 mg 1 tab 3 times a day as needed for muscle spasm. We'll also plan to start her on Solu-Medrol 80 mg IV every 8 hours. We did discuss she is currently on anticoagulation with Coumadin due to her history of mechanical mitral valve replacement and atrial fibrillation. We discussed we could consult with pain management but that they would most likely decline injections at this time given her current Coumadin use. We we will currently planned to have her work to conservative treatment options. If she does have some improvement with Solu-Medrol and cyclobenzaprine and she feels her symptoms are more tolerable, we will plan to prescribe a prednisone taper at the time of discharge along with cyclobenzaprine and may plan to clear her for discharge home as early as tomorrow, 06/01/2022. We did discuss without currently planning for acute surgical intervention in regards to her lumbar spine. Patient like to avoid surgical intervention. We will continue to follow the patient. Patient has a history of difficulty IV placement. Her current IV is bad and has been removed. Nursing states patient is currently scheduled to receive a new line placement this afternoon. 2. Patient will continue be seen and examined by medicine
[2022-06-01] MEDS: methylPREDNISolone SOD SUCCI 125 MG/2 ML VIAL IV SCH (15:26)
--- NOTE | 2022-06-01 16:57 | P.PN ---
Subjective Progress Note Date: 06/01/22 Principal diagnosis: Back pain Issue is currently still having severe back pain. She is not able to get up or move outside the bed. She was laying still in the bed to avoid the pain. Pain does not radiate to her legs. No focal weakness or numbness. Objective - Vital Signs Vital signs: Vital Signs Temp 98.4 F 06/01/22 15:08 Pulse 75 06/01/22 15:08 Resp 16 06/01/22 15:08 BP 126/77 06/01/22 15:08 Pulse Ox 99 06/01/22 15:08 FiO2 Intake & Output 05/31/22 06/01/22 06/01/22 18:59 06:59 18:59 Intake Total 240 Output Total 900 Balance 240 -900 Weight 88.451 kg Intake: Oral 240 Output: Urine 900 Other: Voiding Method External Catheter # Voids 0 0 - Exam Constitutional: No acute distress, conversant, pleasant Eyes:Anicteric sclerae, moist conjunctiva, no lid-lag, PERRLA, ENMT: Oropharynx clear, no erythema, exudates Neck: Supple, FROM, no masses, or JVD, No carotid bruits, No thyromegaly Lungs: Clear to auscultation, Clear to percussion, Normal respiratory effort, no accessory muscle use Cardiovascular: Heart regular in rate and rhythm, No murmurs, gallops, or rubs, No peripheral edema Abdominal: Soft, Nontender, no guarding, rebound or rigidity, Normoactive bowel sounds, No hepatomegaly, No splenomegaly, No palpable mass Skin: Normal temperature, tone, texture, turgor, no induration, No subcutaneous nodules, No rash, lesions, No ulcers Extremities: No digital cyanosis, No clubbing, Pedal pulses intact and symmetrical, Radial pulses intact and symmetrical, No calf tenderness Psychiatric: Alert and oriented to person, place and time, appropriate affect, intact judgement Neuro: Muscles Strength 5/5 in all 4 extremities, Sensation to light touch grossly present throughout, Cranial nerves II-XII grossly intact, no focal sensory deficits - Labs CBC & Chem 7: 05/31/22 13:43 05/31/22 13:43 Labs: Abnormal Lab Results - Last 24 Hours (Table) 06/01/22 Range/Units 06:08 PT 28.0 H (9.9-11.9) sec INR 2.59 H (0.90-1.11) Assessment and Plan Plan: Intractable back pain In inability to ambulate Morphine when necessary for pain, [facility] as needed Physical therapy evaluation Orthopedic surgeon not planning intervention History of atrial fibrillation status post ablation History of mechanical mitral valve replacement History of ASD repair GERD History of nephrolithiasis All stable Resume meds.
[2022-06-01] MEDS ORDERED: WARFARIN 2 MG TAB PO SCH (18:00)
[2022-06-01] MEDS: [UNRECOGNIZED DRUG - OTHER] PO SCH (21:24)
[2022-06-02] MEDS: methylPREDNISolone SOD SUCCI 125 MG/2 ML VIAL IV SCH ×2 (00:20→09:10)
--- NOTE | 2022-06-02 09:03 | P.PN ---
Progress Note - Text Progress Note Date: 06/02/22 Orthopedic spine: History of present illness: Patient is a very pleasant 52-year-old female who is seen and examined at bedside for follow-up evaluation of her lumbar spine. She states approximately 1 month ago she was doing some increased activities and had some increased low back pain at that time. 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 She states her pain had been significant. She has had difficulty with mobilization and ambulation due to her back pain. Her pain is exacerbated with bending and twisting activities. Due to the severity of her pain she was brought to [facility] for further evaluation. Initially, she states ever having some difficulty with pain control. She states her pain has had some improvement since her admission to the hospital. Since being seen and examined yesterday, a midline has been placed. She has been receiving Solu-Medrol IV and has been taking cyclobenzaprine with benefit. She feels her symptoms have continued to improve as compared to yesterday. She has been able to ambulate to the restroom. She continues to move somewhat slowly but feels her symptoms are better controlled she feels she could be ready for discharge home today. She states she currently denies any lower extremity weakness or radiculopathy bilaterally. She has good range of motion of her bilateral lower extremities. She does state some movements of her lower extremities will exacerbate her low back pain and cause spasm. She denies any saddle anesthesia. She denies difficulty with urination. Previously placed external catheter has been discontinued She did have CT imaging of her lumbar spine performed in the emergency department. She denies specific injury. She does have a significant medical history which includes atrial fibrillation with ablation and mechanical mitral valve replacement. Patient is currently on Coumadin. She has taken steroid medication the past without difficulty. She is unable to take anti-inflammatory medication due to her Coumadin use. Patient has a history of difficulty IV placement. Her current IV is bad and has been removed. Nursing states patient is currently scheduled to receive a new line placement this afternoon. Physical exam: Patient is awake, alert, and oriented 3 Vital signs stable; patient currently sitting comfortably at bedside chair Good chest excursion with deep inspiration and expiration Examination of lumbar spine reveals skin is intact with no abrasions, laceratio ns, or bruises; no erythema, purulence or signs of infection Dorsiflexion, plantarflexion, and extensor hallucis longus positive sustained bilaterally Lower extremity strength 5/5 bilaterally No lower extremity hyperreflexia bilaterally Straight leg test negative bilateral lower extremities Negative Lasegue's test bilaterally No signs or symptoms of DVT; no calf pain No pain with internal and external rotation of the hips bilaterally Neurovascularly intact External catheter discontinued Pertinent studies: CT of the lumbar spine taken on 05/31/2022: L4-5 degenerative disc disease, posterior disc bulge, mild facet arthropathy, and ligament of flavum buckling resulting in at least mild spinal canal stenosis; L5-S1 mild degenerative disc disease with disc bulge and central disc protrusion resulting in mild to moderate spinal stenosis Assessment: Intractable low back pain Lumbar myofascial strain Lumbar spasm L4-5 and L5-S1 degenerative disc disease Lumbar facet arthropathy L4-5 mild spinal stenosis L5-S1 mild to moderate spinal stenosis History of atrial fibrillation History of mechanical mitral valve replacement Currently on long-term anticoagulation with Coumadin Plan: 1. Patient has been experiencing some ongoing low back pain over the past month after doing some increased activities. 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 Since that time she has had severe pain across her lower lumbar spine. Her pain is exacerbated with bending and twisting activities. She presented to [facility] for further evaluation. Lumbar CT imaging was taken at that time which did show some changes most significant at L4-5 and L5-S1. After being seen and examined yesterday, and midline was placed. She has been able to receive Solu-Medrol 80 mg IV every 8 hours. She is also been things settle Benzapril 10 mg 1 tab 3 times a day as needed for muscle spasm. Since that time her symptoms have continued to improve. She has been able to ambulate to the restroom. Her external catheter has been discontinued. She has good range of motion of bilateral lower extremities and denies lower extremity weakness or radiculopathy bilaterally. She denies any difficulty urination. She denies saddle anesthesia. She does state active range of motion of the bilateral lower extremities does increase her back pain. She does have spasm at her lumbar spine. She does not feel she has returned to her baseline, but does feel her symptoms have improved to where she could manage her symptoms at home with medication. We did discuss we'll plan to prescribe a prednisone taper. She is given a prescription for prednisone 20 mg, take 3 tabs 4 days, then take 2 tabs 4 days, and then take 1 tab 4 days. She should take this prescription until completion. She is also given a prescription for cyclobenzaprine 10 mg 1 tab 3 times a day as needed for muscle spasm, dispensed #60. Medications are sent to the [facility] pharmacy located within [facility] protocol request of the patient. Given her improvement as compared yesterday, I do not feel it is necessary for consultation with pain management. We did discuss she is currently on anticoagulation with Coumadin due to her history of mechanical mitral valve replacement and atrial fibrillation. We discussed we could consult with pain management but that they would most likely decline injections at this time given her current Coumadin use. We did discuss we are not currently planning for acute surgical intervention in regards to her lumbar spine. Patient like to avoid surgical intervention. From an orthopedic spine standpoint, patient is clear for discharge. Patient may follow-up with Martínez Palacios PA-C or Dr. Sylvain Giraldo at [facility] in 2 weeks following discharge. 2. Patient will continue be seen and examined by medicine
[2022-06-02] MEDS: ATORVASTATIN 10 MG TAB PO SCH (09:10)
[2022-06-02] MEDS: MAGNESIUM OXIDE 400 MG TAB PO SCH (09:10)
[2022-06-02] MEDS: PANTOPRAZOLE 40 MG TABLET PO SCH (09:10)
[2022-06-02] MEDS: ASPIRIN 81 MG PO SCH (09:10)
[2022-06-02] MEDS: METOPROLOL SUCCINATE (ER) 25 MG TAB.ER.24H PO SCH (09:10)
[2022-06-02] MEDS: ASCORBIC ACID 500 MG TAB PO SCH (09:10)
[2022-06-02] MEDS: PROPAFENONE 150 MG TAB PO SCH (09:11)
[2022-06-02 10:12] VITALS: BP 128/71; PULSE 69; RESP 16; TEMP 98.3
[2022-06-02 11:12] LABS: INR 2.77 (0.90-1.11); Prothrombin Time 29.8 sec (9.9-11.9)
--- NOTE | 2022-06-02 12:56 | P.DS ---
Providers Date of admission: 05/31/22 15:28 Expected date of discharge: 06/02/22 Attending physician: Rae George MD Consults: 05/31/22 15:40 Consult Physician Routine Consulting Provider: Jonel Giraldo Consult Reason/Comments: L5-S1 disc bulge with superimposed central disc protrusion Do you want consulting provider notified?: Yes Primary care physician: Seferino Matamoros Hospital Course: 52-year-old female with past medical history significant for atrial fibrillation, GERD, kidney stones, MVP with valve replacement on coumadin presents to the emergency room via EMS for severe back pain causing difficulty with ambulation. No hx of trauma. Patient had few episodes of muscle spasms in her back throughout her life. No chronic back pain. Pain does not radiate towards her leg. However any movement of the leg could trigger the back pain. She denies any focal weakness or numbness, no bladder or bowel incontinence. In the emergency department she had a computed tomography scan of the lower back that showed L5 to S1 disc bulge with superimposed central disc protrusion and resulting mild to moderate stenosis of the spinal canal, L4 to L5 disc bulge wit h mild spinal canal stenosis. Patient was admitted for pain control, she was started on IV opiates. He was seen by physical therapy who helped her to get up and move around. She was advised regarding regular back stretching. She was seen by orthopedic service who did not have surgical recommendation. Patient was treated with muscle relaxants and steroids as well. He did not qualify for back injections due to being on anticoagulation. She is currently ambulatory back pain is better. She'll be referred to outpatient physical therapy treatment. Patient Condition at Discharge: Stable Plan - Discharge Summary Discharge Rx Participant: Yes New Discharge Prescriptions: New Cyclobenzaprine [Flexeril] 10 mg PO TID PRN #60 tab PRN Reason: Muscle Spasm predniSONE See Taper PO DIRECTED #24 tab Continue Aspirin EC [Ecotrin Low Dose] 81 mg PO DAILY Omeprazole 20 mg PO DAILY Propafenone HCl [Propafenone HCl ER] 225 mg PO BID Ascorbic Acid [Vitamin C] 500 mg PO DAILY Warfarin Sodium [Jantoven] 4 mg PO DAILY Magnesium Oxide 400 mg PO DAILY Rosuvastatin Calcium [Crestor] 5 mg PO DAILY Cholecalciferol (Vitamin D3) [Vitamin D3 (125 MCG = 5,000 IU)] 125 mcg PO DAILY Pimtrea 0.15-0.02-0.01mg 1 tab PO HS Metoprolol Succinate (ER) [Toprol XL] 25 mg PO BID Discharge Medication List Aspirin EC [Ecotrin Low Dose] 81 mg PO DAILY 01/07/15 [History] Omeprazole 20 mg PO DAILY 09/23/20 [History] Magnesium Oxide 400 mg PO DAILY 02/14/21 [History] Ascorbic Acid [Vitamin C] 500 mg PO DAILY 05/31/22 [History] Cholecalciferol (Vitamin D3) [Vitamin D3 (125 MCG = 5,000 IU)] 125 mcg PO DAILY 05/31/22 [History] Metoprolol Succinate (ER) [Toprol XL] 25 mg PO BID 05/31/22 [History] Pimtrea 0.15-0.02-0.01mg 1 tab PO HS 05/31/22 [History] Propafenone HCl [Propafenone HCl ER] 225 mg PO BID 05/31/22 [History] Rosuvastatin Calcium [Crestor] 5 mg PO DAILY 05/31/22 [History] Warfarin Sodium [Jantoven] 4 mg PO DAILY 05/31/22 [History] Cyclobenzaprine [Flexeril] 10 mg PO TID PRN #60 tab 06/02/22 [Rx] predniSONE See Taper PO DIRECTED #24 tab 06/02/22 [Rx] Follow up Appointment(s)/Referral(s): Seferino Matamoros MD [Primary Care Provider] - 1-2 days Martínez Palacios PAC [PHYSICIAN PALEOLOGIST] - 2 Weeks (Patient may follow-up with Martínez Palacios PA-C or Dr. Sylvain Giraldo at [facility] in 2-3 weeks following discharge. ) Activity/Diet/Wound Care/Special Instructions: 1. Avoid excessive bending, twisting, and lifting activities 2. Patient may participate in activities to her tolerance in regards to her lumbar spine Discharge Disposition: HOME SELF-CARE
== END 2022-06-02 15:39 | disposition home or self-care (01) ==
LOC: EC 11:30 → 4SSUR 15:28
PROVIDERS: ADMIT Internal Medicine; ATTEND Internal Medicine
DX: M51.37 Other intervertebral disc degeneration, lumbosacral region (principal); M48.07 Spinal stenosis, lumbosacral region; K21.9 Gastro-esophageal reflux disease without esophagitis; I34.1 Nonrheumatic mitral (valve) prolapse; M62.830 Muscle spasm of back; I48.91 Unspecified atrial fibrillation; Z79.01 Long term (current) use of anticoagulants; Z95.2 Presence of prosthetic heart valve; Z79.82 Long term (current) use of aspirin; Z79.899 Other long term (current) drug therapy; Z88.1 Allergy status to other antibiotic agents; Z88.0 Allergy status to penicillin
CPT/HCPCS: 96376 ×2; 96375 ×2; 96372; 96374; 99285; 36415; 97161; 97166; 36410; 76937; 80053; 85025; 85610 ×3; 85730; 81003; 72131; G0378 ×3; J2270 ×2; J1100; J2930 ×2; J3360

== ENCOUNTER → 2023-01-18 | Outpatient (CLI) | payer BC ==
--- NOTE | 2023-01-18 15:04 | XR ---
EXAMINATION TYPE: XR KUB DATE OF EXAM: 01/18/2023 HISTORY: Pain Comparison: 03/05/2015 Single KUB is submitted for interpretation. Findings: Right renal calculi: There appear to be a couple of the sub-3 mm calculi mid right kidney however ove rlying bowel content limits evaluation. Right ureteral calculi: None Visualized. Left renal calculi: None Visualized.Limited by overlying bowel content. Left ureteral calculi: None Visualized. Pelvic calcifications: None Visualized. Bowel gas pattern is unremarkable. No free air. No mass effects. IMPRESSION: 1. There appear to be a couple of the sub-3 mm calculi mid right kidney however overlying bowel lexus nt limits evaluation.
== END | disposition home or self-care (01) ==
LOC: RADXRMAIN 14:49
PROVIDERS: ATTEND Urology
DX: N20.0 Calculus of kidney (principal)
CPT/HCPCS: 74018

== ENCOUNTER 2023-09-22 08:36 | Day surgery (SDC) | payer BC ==
[2023-09-21 08:34] VITALS: BMI 38.4
[~2023-09-22 08:36] MED LIST changes: -DEXAMETHASONE SOD PHOSPHATE 4 MG/ML 1 ML VIAL IV ONE; -HYDROmorphone 0.5 MG/0.5 ML SYRINGE IVP PRN; -LIDOCAINE 1% (10MG/ML) FOR IV START INTRADERMA PRN; -MIDAZOLAM 2 MG/2 ML VIAL IV PRN; -ONDANSETRON 4 MG/2 ML VIAL IVP ONE
[2023-09-22 09:22] VITALS: RESP 16; TEMP 98.2
[2023-09-22] MEDS ORDERED: PROPOFOL 10 MG/ML 20 ML VIAL IV ONE (09:25)
--- NOTE | 2023-09-22 09:42 | P.PCN ---
Date of Procedure: 09/22/23 Procedure(s) Performed: BRIEF HISTORY: Patient is a 53-year-old pleasant white female scheduled for an elective colonoscopy as a part of screening for colon cancer. PROCEDURE PERFORMED: Colonoscopy. PREOPERATIVE DIAGNOSIS: Screening for colon cancer. IV sedation per Anesthesia. PROCEDURE: After informed consent was obtained, the patient, was brought into the endoscopy unit. IV sedation was administered by Anesthesia under continuous monitoring. Digital rectal examination was normal. Initially the Olympus CF-160 flexible video colonoscope was then inserted in the rectum, gradually advanced into the cecum without any difficulty. Careful examination was performed as the scope was gradually being withdrawn. Ileocecal valve and the appendiceal orifice were visualized and appeared normal. Prep was excellent. Mucosa of the cecum, ascending colon, transverse colon, descending colon, sigmoid colon, and rectum appeared normal. Retroflexion was performed in the rectum and no lesions were seen. The patient tolerated the procedure well. IMPRESSION: Normal-appearing colon from rectum to cecum with no evidence of colorectal neoplasia . RECOMMENDATIONS: Findings of this examination were discussed with the patient as well as a family. She was advised to have a repeat screening colonoscopy in 10 years.
[2023-09-22 10:13] VITALS: BP 117/57; PULSE 77
== END 2023-09-22 10:26 | disposition home or self-care (01) ==
LOC: ORWHC2ENDO 08:36
PROVIDERS: ATTEND Internal Medicine Gastroenterology
DX: Z12.11 Encounter for screening for malignant neoplasm of colon (principal); I48.91 Unspecified atrial fibrillation; E07.9 Disorder of thyroid, unspecified; K21.9 Gastro-esophageal reflux disease without esophagitis; Z79.899 Other long term (current) drug therapy; Z88.0 Allergy status to penicillin; Z79.890 Hormone replacement therapy
CPT/HCPCS: 45378; 81025; J2704

== ENCOUNTER → 2024-09-08 | Outpatient (CLI) | payer BC ==
--- NOTE | 2024-09-08 14:34 | XR ---
EXAMINATION TYPE: XR KUB DATE OF EXAM: 09/08/2024 1:56 PM COMPARISON: 01/18/2023 CLINICAL INDICATION: Female, 54 years old with history of hematuria for one year, flank pain for a co uple days, N20.0 CALCULUS OF KIDNEY, , FINDINGS: There is moderate stool burden. No dilated small bowel loops. Retained epicardial pacer leads. A righ t ventricular pacer lead noted. Nonobstructive bowel gas pattern. A couple tiny right-sided pelvic ph leboliths. Bowel content largely obscured by bowel content. IMPRESSION: 1. Moderate stool burden. Correlate for possible constipation. 2. Bowel content largely obscures the renal shadows. [facility], , 09/08/2024 2:32 PM
== END | disposition home or self-care (01) ==
LOC: RADXRMAIN 13:44
PROVIDERS: ATTEND Urology
DX: N20.0 Calculus of kidney (principal); R31.0 Gross hematuria
CPT/HCPCS: 74018

== ENCOUNTER → 2024-09-21 | Outpatient (CLI) | payer BC | END | disposition home or self-care (01) | LOC: RADCTMAIN 15:55 | PROVIDERS: ATTEND Urology | DX: Z53.9 Procedure and treatment not carried out, unspecified reason (principal) ==

== ENCOUNTER 2024-10-12 05:24 | Emergency (ER) | payer BC ==
--- NOTE | 2024-10-12 06:30 | ED ---
General Adult HPI - General Chief complaint: Upper Respiratory Infection Stated complaint: Cough, chest tightness Time Seen by Provider: 10/12/24 05:40 Source: patient, RN notes reviewed Mode of arrival: ambulatory - History of Present Illness Initial comments: This is a 54-year-old female with a history of mitral valve prolapse with electronic pacemaker and valve replacement presenting to the emergency department for dry cough, congestion. Patient states that mid September she began to experience URI symptoms which improved after 1 week however symptoms returned during the week of 10/04/24. Was evaluated by her primary care provider on 10/08/2024 where chest x-ray was completed which resulted clear and was started on antibiotic although is concerned that she may have developed an allergic reaction to this and did use of antibiotic on 10/10/24. Dates that yesterday she began to experience a tightness of her mid back that is worse with coughing. She denies anterior chest pain, shortness of breath, difficulty breathing, history of DVT/PE, fevers or chills. - Related Data Home Medications Medication Instructions Recorded Confirmed Aspirin EC [Ecotrin Low Dose] 81 mg PO DAILY 01/07/15 09/21/23 Omeprazole 20 mg PO DAILY 09/23/20 09/21/23 Magnesium Oxide 400 mg PO DAILY 02/14/21 09/21/23 Ascorbic Acid [Vitamin C] 500 mg PO DAILY 05/31/22 09/21/23 Cholecalciferol (Vitamin D3) 125 mcg PO DAILY 05/31/22 09/21/23 [Vitamin D3 (125 MCG = 5,000 IU)] Metoprolol Succinate (ER) [Toprol 25 mg PO DAILY 05/31/22 09/21/23 XL] Propafenone HCl [Propafenone HCl 225 mg PO BID 05/31/22 09/21/23 ER] Rosuvastatin Calcium [Crestor] 5 mg PO DAILY 05/31/22 09/21/23 Enoxaparin [Lovenox] 100 mg SQ Q12H 09/21/23 09/21/23 Levothyroxine Sodium [Synthroid] 50 mcg PO DAILY 09/21/23 09/21/23 Warfarin Sodium 5 mg PO DAILY 09/21/23 09/21/23 Previous Rx's Medication Instructions Recorded Albuterol Inhaler [Ventolin Hfa 1 - 2 puff INHALATION Q6H PRN #1 10/12/24 Inhaler] each Benzonatate [Tessalon Perles] 100 mg PO TID PRN #15 capsule 10/12/24 Allergies Allergy/AdvReac Type Severity Reaction Status Date / Time ciprofloxacin Allergy Rash/Hives Verified 10/12/24 05:37 erythromycin base Allergy SEVERE Verified 10/12/24 05:37 HEADACHES Penicillins Allergy Rash/Hives Verified 10/12/24 05:37 azithromycin [From Zithromax] AdvReac headache Verified 10/12/24 05:37 iodine AdvReac Swelling Verified 10/12/24 05:37 Review of Systems ROS Statement: Those systems with pertinent positive or pertinent negative responses have been documented in the HPI. ROS Other: All systems not noted in ROS Statement are negative. Past Medical History Past Medical History: Atrial Fibrillation, GERD/Reflux, Hyperlipidemia, Mitral Valve Prolapse (MVP), Thyroid Disorder Additional Past Medical History / Comment(s): Nephrolithiasis History of Any Multi-Drug Resistant Organisms: None Reported Past Surgical History: Heart Catheterization, Pacemaker, Uterine Ablation Additional Past Surgical History / Comment(s): mitral valve repair X3, ASD repair ,LITHOTRIPSY X 2. SX FOR ENDOMETRIOSIS, mitral valve replacement,. COLONOSCOPY, D & C 06/2023 Past Anesthesia/Blood Transfusion Reactions: Postoperative Nausea & Vomiting (PONV) Type of Cardiac Device: Permanent Pacemaker Device Placement Date:: 03/2023 Past Psychological History: No Psychological Hx Reported Smoking Status: Never smoker Past Alcohol Use History: None Reported Past Drug Use History: None Reported - Past Family History Mother Family Medical History: No Reported History General Exam General appearance: alert, in no apparent distress ENT exam: Present: normal exam, mucous membranes moist Neck exam: Present: normal inspection. Absent: tenderness, meningismus, lymphadenopathy Respiratory exam: Present: normal lung sounds bilaterally. Absent: respiratory distress, wheezes, rales, rhonchi, stridor Cardiovascular Exam: Present: regular rate, normal rhythm, normal heart sounds. Absent: systolic murmur, diastolic murmur, rubs, gallop, clicks GI/Abdominal exam: Present: soft, normal bowel sounds. Absent: distended, tenderness, guarding, rebound, rigid Extremities exam: Present: normal inspection, full ROM, normal capillary refill. Absent: tenderness, pedal edema, joint swelling, calf tenderness Back exam: Present: normal inspection Course Vital Signs 10/12/24 10/12/24 05:25 09:27 Temperature 97.5 F L 98.4 F Pulse Rate 65 72 Respiratory 20 18 Rate Blood Pressure 148/80 151/88 O2 Sat by Pulse 98 97 Oximetry Medical Decision Making - Medical Decision Making Was pt. sent in by a medical professional or institution (, PA, SEED SPECIALIST, urgent care, hospital, or residential...) When possible be specific @ -No Did you speak to anyone other than the patient for history (EMS, parent, family, police, friend...)? What history was obtained from this source @ -No Did you review nursing and triage notes (agree or disagree)? Why? @ -I reviewed and agree with nursing and triage notes Were old charts reviewed (outside hosp., previous admission, EMS record, old EKG, old radiological studies, urgent care reports/EKG's, residential records)? Report findings @ -No old charts were reviewed Differential Diagnosis (chest pain, altered mental status, abdominal pain women, abdominal pain men, vaginal bleeding, weakness, fever, dyspnea, syncope, headache, dizziness, GI bleed, back pain, seizure, CVA, palpatations, mental health, musculoskeletal)? @ -Differential Chest Pain: Stable Angina, Unstable Angina, STEMI, NSTEMI Aortic Dissection, Pneumothorax, Musculoskeletal, Esophageal Spasm GERD, Cholecystitis, Pancreatitis, Zoster, this is not meant to be an all-inclusive list. EKG interpreted by me (3pts min.). @ -Completed at 659 electronic atrial pacemaker with a ventricular to 61, IL interval 317, QRS 114, QTc 445. X-rays interpreted by me (1pt min.). @ -None done CT interpreted by me (1pt min.). @ -None done U/S interpreted by me (1pt. min.). @ -None done What testing was considered but not performed or refused? (CT, X-rays, U/S, labs)? Why? @ -None What meds were considered but not given or refused? Why? @ -None Did you discuss the management of the patient with other professionals (professionals i.e. GEOVANY Stephens, SEED SPECIALIST, lab, RT, psych nurse, social services analyst, farm marketer, teacher, radio officer, egg caser)? Give summary @ -No Was smoking cessation discussed for >3mins.? @ -No Was critical care preformed (if so, how long)? @ -No Were there social determinants of health that impacted care today? How? (Homelessness, low income, unemployed, alcoholism, drug addiction, tra nsportation, low edu. Level, literacy, decrease access to med. care, residential, rehab)? @ -No Was there de-escalation of care discussed even if they declined (Discuss DNR or withdrawal of care, Hospice)? DNR status @ -No What co-morbidities impacted this encounter? (DM, HTN, Smoking, COPD, CAD, Cancer, CVA, ARF, Chemo, Hep., AIDS, mental health diagnosis, sleep apnea, morbid obesity)? @ -None Was patient admitted / discharged? Hospital course, mention meds given and route, prescriptions, significant lab abnormalities, going to OR and other pertinent info. @ -Discharge. 54-year-old female presenting with cough, congestion. On my evaluation the patient is resting comfortably in no signs acute distress. Her vital signs are stable. Laboratory studies including CBC, CMP within normal li mits. Patient's INR is 2.5 that is consistent with patient be on anticoagulation. Patient has has been positive for COVID. From that she continue supportive treatment at home such as a Tylenol taper bodyaches. Patient states that her symptoms of bilateral breath have somewhat improved after breathing treatment and therefore she is provided with outpatient prescription for albuterol inhaler to use strictly only as needed. Patient, she is wants prescription for Tessalon Perles for cough symptoms. All questions have been answered at bedside strict return parameters cory the patient she ster ilized understanding. Discussed with Dr. Guerra Undiagnosed new problem with uncertain prognosis? @ -No Drug Therapy requiring intensive monitoring for toxicity (Heparin, Nitro, Insulin, Cardizem)? @ -No Were any procedures done? @ -No Diagnosis/symptom? @ -COVID19 Acute, or Chronic, or Acute on Chronic? @ -Acute Uncomplicated (without systemic symptoms) or Complicated (systemic symptoms)? @ -uncomplicated Side effects of treatment? @ -No Exacerbation, Progression, or Severe Exacerbation? @ -No Poses a threat to life or bodily function? How? (Chest pain, [place], [place], pneumonia, PE, COPD, DKA, ARF, appy, cholecystitis, CVA, Diverticulitis, Homicidal, Suicidal, threat to staff... and all critical care pts) @ -No - Lab Data Result diagrams: 10/12/24 07:13 10/12/24 08:24 Lab Results 10/12/24 10/12/24 10/12/24 Range/Units 07:13 07:13 07:53 WBC 8.8 (3.8-10.6) k/uL RBC 5.06 (3.80-5.40) m/uL Hgb 15.8 (11.4-16.0) gm/dL Hct 46.6 H (34.0-46.0) % MCV 92.0 (80.0-100.0) fL MCH 31.3 (25.0-35.0) pg MCHC 34.0 (31.0-37.0) g/dL RDW 14.9 (11.5-15.5) % Plt Count 194 (150-450) k/uL MPV 7.8 Neutrophils % 74 % Lymphocytes % 14 % Monocytes % 5 % Eosinophils % 6 % Basophils % 0 % Neutrophils # 6.5 (1.3-7.7) k/uL Lymphocytes # 1.2 (1.0-4.8) k/uL Monocytes # 0.4 (0-1.0) k/uL Eosinophils # 0.5 (0-0.7) k/uL Basophils # 0.0 (0-0.2) k/uL PT 25.0 H (10.0-12.5) sec INR 2.5 H (<1.2) APTT 32.4 H (22.0-30.0) sec Sodium (137-145) mmol/L Potassium (3.5-5.1) mmol/L Chloride (98-107) mmol/L Carbon Dioxide (22-30) mmol/L Anion Gap mmol/L BUN (7-17) mg/dL Creatinine (0.52-1.04) mg/dL Est GFR (CKD-EPI)AfAm (>60 ml/min/1.73 sqM) Est GFR (CKD-EPI)NonAf (>60 ml/min/1.73 sqM) Glucose (74-99) mg/dL Calcium (8.4-10.2) mg/dL Magnesium (1.6-2.3) mg/dL Total Bilirubin (0.2-1.3) mg/dL AST (14-36) U/L ALT (4-34) U/L Alkaline Phosphatase (38-126) U/L Total Protein (6.3-8.2) g/dL Albumin (3.5-5.0) g/dL Influenza Type A (PCR) Not Detected (Not Detectd) Influenza Type B (PCR) Not Detected (Not Detectd) RSV (PCR) Not Detected (Not Detectd) SARS-CoV-2 (PCR) Detected A (Not Detectd) 10/12/24 Range/Units 08:24 WBC (3.8-10.6) k/uL RBC (3.80-5.40) m/uL Hgb (11.4-16.0) gm/dL Hct (34.0-46.0) % MCV (80.0-100.0) fL MCH (25.0-35.0) pg MCHC (31.0-37.0) g/dL RDW (11.5-15.5) % Plt Count (150-450) k/uL MPV Neutrophils % % Lymphocytes % % Monocytes % % Eosinophils % % Basophils % % Neutrophils # (1.3-7.7) k/uL Lymphocytes # (1.0-4.8) k/uL Monocytes # (0-1.0) k/uL Eosinophils # (0-0.7) k/uL Basophils # (0-0.2) k/uL PT (10.0-12.5) sec INR (<1.2) APTT (22.0-30.0) sec Sodium 139 (137-145) mmol/L Potassium 3.9 (3.5-5.1) mmol/L Chloride 101 (98-107) mmol/L Carbon Dioxide 27 (22-30) mmol/L Anion Gap 11 mmol/L BUN 10 (7-17) mg/dL Creatinine 0.65 (0.52-1.04) mg/dL Est GFR (CKD-EPI)AfAm >90 (>60 ml/min/1.73 sqM) Est GFR (CKD-EPI)NonAf >90 (>60 ml/min/1.73 sqM) Glucose 100 H (74-99) mg/dL Calcium 9.6 (8.4-10.2) mg/dL Magnesium 1.9 (1.6-2.3) mg/dL Total Bilirubin 0.9 (0.2-1.3) mg/dL AST 27 (14-36) U/L ALT 25 (4-34) U/L Alkaline Phosphatase 107 (38-126) U/L Total Protein 8.5 H (6.3-8.2) g/dL Albumin 5.0 (3.5-5.0) g/dL Influenza Type A (PCR) (Not Detectd) Influenza Type B (PCR) (Not Detectd) RSV (PCR) (Not Detectd) SARS-CoV-2 (PCR) (Not Detectd) Disposition Clinical Impression: COVID-19 Disposition: HOME SELF-CARE Condition: Good Instructions (If sedation given, give patient instructions): COVID-19 (Coronavirus Disease 2019) (ED) Additional Instructions: Please return to the Emergency Department if symptoms worsen or any other concerns. Prescriptions: Benzonatate [Tessalon Perles] 100 mg PO TID PRN #15 capsule PRN Reason: Cough Albuterol Inhaler [Ventolin Hfa Inhaler] 1 - 2 puff INHALATION Q6H PRN #1 each PRN Reason: Shortness Of Breath Is patient prescribed a controlled substance at d/c from ED?: No Referrals: Seferino Matamoros MD [Primary Care Provider] - 1-2 days Time of Disposition: 09:05
[2024-10-12 07:22] LABS: Basophils % (A) 0 %; Eosinophils # (A) 0.5 k/uL (0-0.7); Eosinophils % (A) 6 %; HCT 46.6 % (34.0-46.0); HGB 15.8 gm/dL (11.4-16.0); Lymphocytes # (A) 1.2 k/uL (1.0-4.8); Lymphocytes % (A) 14 %; MCH 31.3 pg (25.0-35.0); Mean Platelet Volume 7.8; Monocytes # (A) 0.4 k/uL (0-1.0); Monocytes % (A) 5 %; Neutrophils # (A) 6.5 k/uL (1.3-7.7); Neutrophils % (A) 74 %; Platelet Count 194 k/uL (150-450); RBC 5.06 m/uL (3.80-5.40); RDW 14.9 % (11.5-15.5); WBC 8.8 k/uL (3.8-10.6)
[2024-10-12 08:15] LABS: INR 2.5 (<1.2); Partial Thromboplastin Time 32.4 sec (22.0-30.0)
[2024-10-12] MEDS: IPRATROPIUM-ALBUTEROL 3 ML NEB INHALATION STA (08:26)
[2024-10-12] MEDS: ALBUTEROL HFA INHALER INHALATION STA (08:27)
[2024-10-12 08:58] LABS: ALT 25 U/L (4-34); AST 27 U/L (14-36); African American GFR (CKD) >90 (>60 ml/min/1.73 sqM); Alkaline Phosphatase 107 U/L (38-126); Anion Gap 11 mmol/L; Blood Urea Nitrogen 10 mg/dL (7-17); Calcium 9.6 mg/dL (8.4-10.2); Carbon Dioxide 27 mmol/L (22-30); Chloride 101 mmol/L (98-107); Glucose 100 mg/dL (74-99); Magnesium 1.9 mg/dL (1.6-2.3); Non-African American GFR(CKD) >90 (>60 ml/min/1.73 sqM); Potassium 3.9 mmol/L (3.5-5.1); Sodium 139 mmol/L (137-145); Total Bilirubin 0.9 mg/dL (0.2-1.3); Total Protein 8.5 g/dL (6.3-8.2)
[2024-10-12 09:29] VITALS: BP 151/88; PULSE 72; RESP 18; TEMP 98.4
== END 2024-10-12 09:27 | disposition home or self-care (01) ==
LOC: EC 05:24
DX: U07.1 COVID-19 (principal); Z88.0 Allergy status to penicillin; Z88.1 Allergy status to other antibiotic agents; Z91.041 Radiographic dye allergy status; Z88.8 Allergy status to other drugs, medicaments and biological substances
CPT/HCPCS: 36415; 80053; 83735; 85025; 85610; 85730; 87636; 94640; 99283